=== PATIENT | female | born 1990 | race African-American/Black ===

== ENCOUNTER 2018-10-12 23:08 | Emergency (ER) | payer OTHER ==
[2018-10-12 23:45] LABS: #Basophils 0.1 thou/uL (0.0-0.2); #Eosinphils 0.1 thou/uL (0.0-0.7); #Lymphocytes 1.2 thou/uL (1.20-3.40); #Monocytes 0.3 thou/uL (0.11-0.59); #Neutrophils 3.8 thou/uL (1.40-6.50); %Basophils 1.5 % (0.0-1.0); %Eosinophils 1.5 % (0.0-10.0); %Lymphocytes 21.1 % (21.0-51.0); %Monocytes 5.8 % (0.0-10.0); %Neutrophils 70.1 % (42.0-75.0); Hemoglobin 12.1 g/dL (12.0-16.0); Mean Corpuscular HGB CONC 33.2 g/dL (32.0-36.0); Mean Corpuscular Hemoglobin 26.6 pg (27.0-31.0); Mean Corpuscular Volume 79.9 fL (78.0-98.0); Mean Platelet Volume 8.5 fL (7.4-10.4); Platelet Count 214 thou/uL (130-400); RBC Distribution Width 12.8 % (11.5-14.5); Red Blood Cell (RBC) Count 4.56 mill/uL (4.20-5.40); White Blood Cell (WBC) Count 5.5 thou/uL (4.8-10.8)
[2018-10-12 23:52] LABS: BHCG - Serum Negative (NEGATIVE); Pregs Control Bar Appear? YES (CONTROL BAR)
[2018-10-12 23:54] LABS: Pregs Control Background? CLEAR/WHITE (CLR/WHITE)
[2018-10-12 23:57] LABS: ALT (SGPT) 13 U/L (8-55); AST (SGOT) 20 U/L (5-34); Albumin 4.2 g/dL (3.5-5.0); Alcohol Less than 10 mg/dL (Less than 10); Alkaline Phosphatase 128 U/L (40-150); Anion Gap 14 mmol/L (10-20); BUN (Urea Nitrogen) 14 mg/dL (7.0-18.7); Bilirubin, Total 0.3 mg/dL (0.2-1.2); Calc. Creatinine Clearance 0 mL/min (70-130); Calcium 9.7 mg/dL (7.8-10.44); Carbon Dioxide 23 mmol/L (22-29); Chloride 105 mmol/L (98-107); Estimated GFR-MDRD 80; Globulin 3.5 g/dL (2.4-3.5); Glucose 93 mg/dL (70-105); Potassium 3.9 mmol/L (3.5-5.1); Protein, Total 7.7 g/dL (6.0-8.3); Sodium 138 mmol/L (136-145)
[2018-10-13 00:28] LABS: Clarity Hazy (Clear); Glucose, Urine (Dipstick) Negative (Negative); Leukocyte Negative (Negative); Nitrite Negative (Negative); Protein, Urine (Dipstick) Negative (Neg-Trace); pH, Urine 6.5 (5.0-9.0)
[2018-10-13 00:29] LABS: Bilirubin Negative (Negative); Blood, Urine Trace (Negative); Urobilinogen 0.2 mg/dL (0.2-1.0)
[2018-10-13 00:36] LABS: Bacteria/HPF Rare-Few HPF (None Seen); Other Microscopic Description FEW CLUE CELLS; RBC/HPF 0-3 HPF (0-3); Squamous Epithelial 0-3 HPF (0-3); Transitional Epithelial 0-3 HPF (0-3); WBC/HPF 0-3 HPF (0-3)
[2018-10-13] MEDS ORDERED: Metoprolol Tartrate 25 MG TAB PO SCH (00:45)
== END 2018-10-13 00:36 | disposition home or self-care (01) ==
LOC: BURERS 23:08
DX: R42 Dizziness and giddiness (principal); R03.0 Elevated blood-pressure reading, without diagnosis of hypertension
CPT/HCPCS: 80053; 80307; 81003; 81015; 84703; 85025; 93005; 94760

== ENCOUNTER 2019-04-25 09:25 | Emergency (ER) | payer OTHER ==
[2019-04-25 10:10] LABS: #Basophils 0.1 thou/uL (0.0-0.2); #Eosinphils 0.1 thou/uL (0.0-0.7); #Lymphocytes 0.9 thou/uL (1.20-3.40); #Monocytes 0.2 thou/uL (0.11-0.59); #Neutrophils 1.6 thou/uL (1.40-6.50); %Basophils 2.1 % (0.0-1.0); %Eosinophils 4.7 % (0.0-10.0); %Lymphocytes 30.9 % (21.0-51.0); %Monocytes 7.2 % (0.0-10.0); %Neutrophils 55.1 % (42.0-75.0); Hemoglobin 11.7 g/dL (12.0-16.0); Mean Corpuscular Hemoglobin 25.1 pg (27.0-31.0); Mean Platelet Volume 8.3 fL (7.4-10.4); Platelet Count 209 thou/uL (130-400); RBC Distribution Width 14.4 % (11.5-14.5); Red Blood Cell (RBC) Count 4.65 mill/uL (4.20-5.40)
[2019-04-25 10:11] LABS: PTT 29.3 SEC (22.9-36.1); Prothrombin Time 13.6 SEC (12.0-14.7)
[2019-04-25 10:20] LABS: ALT (SGPT) 11 U/L (8-55); AST (SGOT) 16 U/L (5-34); Alkaline Phosphatase 101 U/L (40-150); Anion Gap 13 mmol/L (10-20); BUN (Urea Nitrogen) 11 mg/dL (7.0-18.7); Bilirubin, Total 0.2 mg/dL (0.2-1.2); Calc. Creatinine Clearance 0 mL/min (70-130); Calcium 9.4 mg/dL (7.8-10.44); Carbon Dioxide 22 mmol/L (22-29); Chloride 110 mmol/L (98-107); Estimated GFR-MDRD 84; Globulin 3.4 g/dL (2.4-3.5); Glucose 91 mg/dL (70-105); Potassium 3.9 mmol/L (3.5-5.1); Protein, Total 7.4 g/dL (6.0-8.3); Sodium 141 mmol/L (136-145)
[2019-04-25 11:03] LABS: Bilirubin Negative (Negative); Blood, Urine Large (Negative); Clarity Slightly Cloudy (Clear); Glucose, Urine (Dipstick) Negative (Negative); Leukocyte Negative (Negative); Nitrite Negative (Negative); Protein, Urine (Dipstick) Negative (Neg-Trace); Urobilinogen 0.2 mg/dL (Less than 2)
[2019-04-25 11:07] LABS: Pregnancy Test - Urine (BHCG) Negative (Negative); Pregu Control Background? CLEAR/WHITE (CLR/WHITE); Pregu Control Bar Appear? YES (CONTROL BAR)
[2019-04-25 11:20] LABS: Bacteria/HPF None Seen HPF (None Seen); Epithelial Cast None Seen LPF (None Seen); RBC/HPF Greater than 50 HPF (0-3); Squamous Epithelial 0-3 HPF (0-3); WBC/HPF 0-3 HPF (0-3)
[2019-04-27 23:02] LABS: Chlam.trachomatis by PCR,Urine Not Detected (NotDetected)
== END 2019-04-25 11:28 | disposition home or self-care (01) ==
LOC: BURERS 09:25
DX: N93.9 Abnormal uterine and vaginal bleeding, unspecified (principal); I10 Essential (primary) hypertension; D50.9 Iron deficiency anemia, unspecified; J45.909 Unspecified asthma, uncomplicated
CPT/HCPCS: 36415; 80053; 81003; 81015; 81025; 85025; 85610; 85730; 87491; 87591; 99284

== ENCOUNTER 2019-05-12 13:28 | Emergency (ER) | payer OTHER ==
[2019-05-12 14:11] LABS: Bilirubin Small (Negative); Blood, Urine Negative (Negative); Clarity Turbid (Clear); Glucose, Urine (Dipstick) Negative (Negative); Leukocyte Small (Negative); Nitrite Negative (Negative); Protein, Urine (Dipstick) 30 mg/dL (Neg-Trace); Urobilinogen 0.2 mg/dL (Less than 2)
[2019-05-12 14:15] LABS: RBC/HPF 0-3 HPF (0-3); WBC/HPF 21-50 HPF (0-3)
[2019-05-12 14:16] LABS: Bacteria/HPF 4+ HPF (None Seen); Mucous/LPF 4+ LPF (<2+)
[2019-05-12 14:29] LABS: Pregnancy Test - Urine (BHCG) Negative (Negative); Pregu Control Background? CLEAR/WHITE (CLR/WHITE); Pregu Control Bar Appear? YES (CONTROL BAR); Specific Gravity 1.025 (1.002-1.036)
== END 2019-05-12 14:23 | disposition home or self-care (01) ==
LOC: BURERS 13:28
DX: N12 Tubulo-interstitial nephritis, not specified as acute or chronic (principal); I10 Essential (primary) hypertension; J45.909 Unspecified asthma, uncomplicated; Z79.899 Other long term (current) drug therapy
CPT/HCPCS: 81003; 81015; 81025; 87086; 99284

== ENCOUNTER 2019-06-15 15:53 | Emergency (ER) | payer OTHER ==
[2019-06-15] MEDS ORDERED: Ibuprofen 200 MG TAB ONE (16:09)
[2019-06-15] MEDS ORDERED: traMADol HCl 50 MG TAB ONE (16:09)
--- NOTE | 2019-06-15 18:44 | CT ---
CT OF THE BRAIN WITHOUT CONTRAST: 06/15/19 The ventricles are normal in size with no shift. No intracranial bleeding or subarachnoid hemorrhage was seen. There is no sign of mass, edema, or stroke. The calvarium appears normal. The visible paran greg sinuses and mastoid air cells are clear. IMPRESSION: No acute intracranial findings. POS: HOME
== END 2019-06-15 16:40 | disposition home or self-care (01) ==
LOC: BURERS 15:53
DX: R51 Headache (principal); I10 Essential (primary) hypertension
CPT/HCPCS: 70450

== ENCOUNTER 2019-09-13 09:54 | Emergency (ER) | payer OTHER | END 2019-09-13 10:16 | disposition home or self-care (01) | LOC: BURERS 09:54 | DX: J11.1 Influenza due to unidentified influenza virus with other respiratory manifestations (principal); I10 Essential (primary) hypertension | CPT/HCPCS: 99283 ==

== ENCOUNTER 2019-12-01 13:06 | Emergency (ER) | payer OTHER ==
[2019-12-01] MEDS ORDERED: predniSONE 20 MG TAB ONE (13:36)
== END 2019-12-01 14:38 | disposition home or self-care (01) ==
LOC: BURERS 13:06
DX: J45.901 Unspecified asthma with (acute) exacerbation (principal); I10 Essential (primary) hypertension
CPT/HCPCS: 93005; J7512; J7620

== ENCOUNTER 2019-12-08 15:06 | Emergency (ER) | payer OTHER | END 2019-12-08 16:31 | disposition home or self-care (01) | LOC: BURERS 15:06 | DX: J06.9 Acute upper respiratory infection, unspecified (principal); I10 Essential (primary) hypertension; J45.909 Unspecified asthma, uncomplicated | CPT/HCPCS: 87804; 99283 ==

== ENCOUNTER 2021-02-24 13:04 | Emergency (ER) | payer OTHER | END 2021-02-24 13:35 | disposition home or self-care (01) | LOC: BURERS 13:04 | DX: K04.7 Periapical abscess without sinus (principal); I10 Essential (primary) hypertension; K02.9 Dental caries, unspecified | CPT/HCPCS: 99283 ==

== ENCOUNTER 2025-05-20 16:37 | Emergency (ER) | payer MEDICAID, OTHER ==
[2025-05-20] MEDS ORDERED: Acetaminophen 500 MG TAB ONE (16:59)
== END 2025-05-20 17:58 | disposition home or self-care (01) ==
LOC: BURERS 16:37
DX: U07.1 COVID-19 (principal)
CPT/HCPCS: 87400; 87426; 99283